=== PATIENT | female | born 1975 | race Caucasian/White ===

== ENCOUNTER 2016-12-17 12:22 | Emergency (ER) | payer OTHER ==
[~2016-12-17] VITALS: Ht 157.5 cm; Wt 57.7 kg
[~2016-12-17 12:22] MED LIST: ONDA4TAB7 SL
[2016-12-17 12:25] VITALS: TEMP 36.7; Ht 157.5 cm; Wt 57.7 kg
[2016-12-17] MEDS ORDERED: SODIUM CHLORIDE 0.9% 1000ML 1,000 ML IV STA (13:18)
[2016-12-17] MEDS ORDERED: SODIUM CHLORIDE 0.9% 500ML 500 ML IV STA (13:18)
--- NOTE | 2016-12-17 13:32 | EMERGENCY ROOM VISIT NOTE ---
History Report prepared by Ida: Rebecca Fuentes Under the Supervision of: Dr. Sara Farrell M.D. First contact with patient: 13:08 Chief Complaint: ABDOMINAL PAIN Stated Complaint: ABDOMINAL PAIN Nursing Triage Summary: pt reports mid abd pain happened on wednesday and after lying down for 30 minutes got better. started again at 1130 today feels nauseated. no vomiting , diarrhea or constipation. History of Present Illness The patient is a 41 year old female who presents to the Emergency Room with complaints of intermittent right sided abdominal pain starting 4 days ago. The first episode was 4 days ago. It passed after 30 minutes. She had eaten normally that day. She had another episode today. The pain was on the right side and wraps around to the back. When she has the pain she is unable to take deep breaths. She denies any vaginal discharge or bleeding, fever or vomiting. Her bowel movements have been normal. Her stool was slightly looser, but not concerning. She denies any bloody stools. She still has her appendix and gallbladder. She denies any chance of as she has had a tubal ligation. She denies any history of blood clots or hormone use. She has a family history of gallbladder problems. Source of History: patient Onset: 4 days ago Position: abdomen (right sided) Quality: other (pain) Timing: intermittent Modifying Factors (Worsening): breathing (deep) Associated Symptoms: No fevers, No vomiting Note: Pt denies vaginal discharge or bleeding. Pt denies bloody stools. Review of Systems See HPI for pertinent positives & negatives. A total of 10 systems reviewed and were otherwise negative. Past Medical & Surgical Medical Problems: (1) Bronchitis (2) Diabetes (3) Intrauterine Surgical Problems: (1) Previous section Family History Diabetes mellitus Gallbladder disease Hypertension Kidney disease Kidney stones Social History Smoking Status: Never Smoker Alcohol Use: occasionally Marital Status: Housing Status: lives with family Occupation Status: employed Current/Historical Medications Scheduled Omeprazole (Prilosec), 20 MG PO BID Allergies Coded Allergies: No Known Allergies (Unverified , 12/17/16) NKFA-NO LATEX ALLERGIES Physical Exam Vital Signs Date Time Temp Pulse Resp B/P Pulse Ox O2 Delivery O2 Flow Rate FiO2 12/17/16 17:06 59 14 126/62 98 12/17/16 16:00 55 12 108/62 99 Room Air 12/17/16 14:17 53 14 108/57 98 Room Air 12/17/16 13:42 54 12/17/16 12:25 36.7 56 18 147/81 99 Room Air Physical Exam Vital signs reviewed. General: Well-appearing, in no significant distress. HEENT: No scleral icterus, PERRLA, neck supple. Atraumatic. Cardiovascular: Regular rate and rhythm, no extra sounds. Pulmonary: Clear to auscultation bilaterally, normal work of breathing. Abdomen: Soft, mild tenderness to palpation of LUQ and RUQ, nondistended, positive bowel sounds. Pain with deep breathing to the right abdomen, Musculoskeletal: Atraumatic, no peripheral edema. Neurologic: Patient awake alert and oriented x 3, full strength in all 4 extremities. Cranial nerves 2 through 12 grossly intact. Skin: Warm, dry, no rash Medical Decision & Procedures ER Provider Diagnostic Interpretation: Radiology results as stated below per my review and radiologist interpretation: ABDOMINAL ULTRASOUND, RIGHT UPPER QUADRANT HISTORY: Right upper quadrant pain. COMPARISON: None. FINDINGS: Liver morphology is normal. There is a 3.4 cm right hepatic lobe cyst. No additional hepatic lesions are identified. There is no biliary ductal dilatation. There are no gallstones. The gallbladder is normal. The pancreas is within normal limits by sonography although the tail is partially obscured. There is no right hydronephrosis. IMPRESSION: 1. No gallstones or biliary ductal dilatation. 2. 3.4 cm right hepatic lobe cyst. Electronically signed by: Zeyad Foote M.D. 12/17/2016 2:48 PM Dictated Date/Time: 12/17/2016 2:47 PM Laboratory Results 12/17/16 13:15 Red Blood Count 4.02, Mean Corpuscular Volume 94.5, Mean Corpuscular Hemoglobin 32.3, Mean Corpuscular Hemoglobin Concent 34.2, Mean Platelet Volume 9.8, Neutrophils (%) (Auto) 64.6, Lymphocytes (%) (Auto) 28.6, Monocytes (%) (Auto) 5.9, Eosinophils (%) (Auto) 0.2, Basophils (%) (Auto) 0.5, Neutrophils # (Auto) 5.28, Lymphocytes # (Auto) 2.34, Monocytes # (Auto) 0.48, Eosinophils # (Auto) 0.02, Basophils # (Auto) 0.04 12/17/16 13:15 Test 12/17/16 13:15 White Blood Count 8.18 K/uL (4.8-10.8) Red Blood Count 4.02 M/uL (4.2-5.4) Hemoglobin 13.0 g/dL (12.0-16.0) Hematocrit 38.0 % (37-47) Mean Corpuscular Volume 94.5 fL (80-100) Mean Corpuscular Hemoglobin 32.3 pg (25-34) Mean Corpuscular Hemoglobin Concent 34.2 g/dl (32-36) Platelet Count 316 K/uL (130-400) Mean Platelet Volume 9.8 fL (7.4-10.4) Neutrophils (%) (Auto) 64.6 % Lymphocytes (%) (Auto) 28.6 % Monocytes (%) (Auto) 5.9 % Eosinophils (%) (Auto) 0.2 % Basophils (%) (Auto) 0.5 % Neutrophils # (Auto) 5.28 K/uL (1.4-6.5) Lymphocytes # (Auto) 2.34 K/uL (1.2-3.4) Monocytes # (Auto) 0.48 K/uL (0.11-0.59) Eosinophils # (Auto) 0.02 K/uL (0-0.5) Basophils # (Auto) 0.04 K/uL (0-0.2) RDW Standard Deviation 42.1 fL (36.4-46.3) RDW Coefficient of Variation 12.3 % (11.5-14.5) Immature Granulocyte % (Auto) 0.2 % Immature Granulocyte # (Auto) 0.02 K/uL (0.00-0.02) D-Dimer 760 ug/L FEU (0-500) Urine Color YELLOW Urine Appearance CLEAR (CLEAR) Urine pH 5.5 (4.5-7.5) Urine Specific [place] 1.011 (1.000-1.030) Urine Protein NEG (NEG) Urine Glucose (UA) NEG (NEG) Urine Ketones NEG (NEG) Urine Occult Blood NEG (NEG) Urine Nitrite NEG (NEG) Urine Bilirubin NEG (NEG) Urine Urobilinogen NEG (NEG) Urine Leukocyte Esterase NEG (NEG) Anion Gap 7.0 mmol/L (3-11) Est Creatinine Clear Calc Drug Dose 60.4 ml/min Estimated GFR () 85.0 Estimated GFR (Non- 73.4 BUN/Creatinine Ratio 15.9 (10-20) Calcium Level 9.2 mg/dl (8.5-10.1) Magnesium Level 2.4 mg/dl (1.8-2.4) Total Bilirubin 0.5 mg/dl (0.2-1) Direct Bilirubin 0.1 mg/dl (0-0.2) Aspartate Amino Transf (AST/SGOT) 25 U/L (15-37) Alanine Aminotransferase (ALT/SGPT) 34 U/L (12-78) Alkaline Phosphatase 54 U/L (45-117) Total Protein 7.6 gm/dl (6.4-8.2) Albumin 4.2 gm/dl (3.4-5.0) Lipase 171 U/L (73-393) Human Chorionic Gonadotropin, Qual NEG (NEG) Laboratory results per my review. Medications Administered Medications (Trade) Dose Ordered Sig/Jose M Route Start Time Stop Time Status Last Admin Dose Admin Sodium Chloride 500 ml @ 999 mls/hr Q31M STAT IV 12/17/16 13:18 12/17/16 13:48 DC 12/17/16 13:36 999 MLS/HR Sodium Chloride (Nss 1000ml) 1,000 ml @ 125 mls/hr Q8H STAT IV 12/17/16 13:18 12/17/16 17:28 DC 12/17/16 14:19 125 MLS/HR Pantoprazole Sodium (Protonix Tab) 40 mg NOW STAT PO 12/17/16 15:20 12/17/16 15:22 DC 12/17/16 15:31 40 MG ED Course 1316: Past medical records reviewed. The patient was evaluated in room B9. A complete history and physical examination was performed. 1318: NSS 1000 ml @ 125 mls/hr IV, NSS 500 ml @ 999 mls/hr IV. 1520: Protonix Tab 40 mg PO. 1523: I reevaluated the patient. She is resting comfortably. I updated her on the results. She will be going for a CT scan of her chest. Medical Decision Differential diagnosis: Etiologies such as appendicitis, diverticulitis, PUD, biliary pathology, UTI, pancreatitis, obstruction, mesenteric ischemia, aortic pathology, infections, inflammatory bowel disease, renal colic, as well as others were entertained. This patient was evaluated and appeared to be in no distress. IV access was obtained and laboratory work was drawn. The patient was hydrated with normal saline solution. Laboratory work is fairly unrevealing. Ultrasound right upper quadrant is negative. On reevaluation, the patient's pain had subsided. There is no significant tenderness to palpation. A CT scan of the abdomen and pelvis had been ordered but the patient stated she preferred to watch and wait. In the meantime the d-dimer resulted and is abnormal. A CT scan of the chest was performed and is negative for pulmonary embolus. The patient was informed of the findings and was advised to follow-up with her physician closely. She may warrant further testing. She will be placed on Prilosec 20 mg twice daily for 2 weeks, then once daily. She will return to the ER for worsening of symptoms or any medical concerns. Impression Primary Impression: Right upper quadrant abdominal pain Scribe Attestation The scribe's documentation has been prepared under my direction and personally reviewed by me in its entirety. I confirm that the note above accurately reflects all work, treatment, procedures, and medical decision making performed by me. Departure Information Prescriptions Omeprazole (PRILOSEC) 20 Mg Capcr 20 MG PO BID, #60 CAP Prov: Sara Farrell M.D. 12/17/16 Referrals No Doctor, Assigned (PCP) Patient Instructions My [facility]
[2016-12-17 13:39] LABS: BASO % 0.5 %; BASO ABS # 0.04 K/uL (0-0.2); COMPLETE YES; EOS % 0.2 %; IG% 0.2 %; LYMPH % 28.6 %; LYMPH ABS # 2.34 K/uL (1.2-3.4); MEAN CELL VOLUME 94.5 fL (80-100); MEAN CORPUSCULAR HEMOGLOBIN 32.3 pg (25-34); MEAN CORPUSCULAR HGB CONC 34.2 g/dl (32-36); MEAN PLATELET VOLUME 9.8 fL (7.4-10.4); MONO % 5.9 %; NEUT % 64.6 %; PLATELET COUNT 316 K/uL (130-400); RED BLOOD COUNT 4.02 M/uL (4.2-5.4); WHITE BLOOD COUNT 8.18 K/uL (4.8-10.8)
[2016-12-17 13:42] LABS: URINE APPEARANCE CLEAR (CLEAR); URINE BILIRUBIN NEG (NEG); URINE COLOR YELLOW; URINE NITRITE NEG (NEG); URINE PH 5.5 (4.5-7.5); URINE SPECIFIC GRAVITY 1.011 (1.000-1.030); UROBILINOGEN NEG (NEG); ZZUR CULT IF INDIC CLEAN CATCH NO
[2016-12-17 13:51] LABS: MANUAL MICROSCOPIC REQUIRED? NO; REVIEW REQ? NO
[2016-12-17 14:04] LABS: BUN/CREATININE RATIO 15.9 (10-20); CALCIUM 9.2 mg/dl (8.5-10.1); CREATININE 0.95 mg/dl (0.60-1.20); MAGNESIUM 2.4 mg/dl (1.8-2.4); POTASSIUM 3.5 mmol/L (3.5-5.1)
--- NOTE | 2016-12-17 14:50 | DIAGNOSTIC IMAGING REPORT ---
ABDOMINAL ULTRASOUND, RIGHT UPPER QUADRANT HISTORY: Right upper quadrant pain. COMPARISON: None. FINDINGS: Liver morphology is normal. There is a 3.4 cm right hepatic lobe cyst. No additional hepatic lesions are identified. There is no biliary ductal dilatation. There are no gallstones. The gallbladder is normal. The pancreas is within normal limits by sonography although the tail is partially obscured. There is no right hydronephrosis. IMPRESSION: 1. No gallstones or biliary ductal dilatation. 2. 3.4 cm right hepatic lobe cyst. Electronically signed by: Zeyad Foote M.D. 12/17/2016 2:48 PM Dictated Date/Time: 12/17/2016 2:47 PM
[2016-12-17 15:00] LABS: PREG INTERNAL NEGATIVE QC NEG CLEAR BACKGROUND; PREG INTERNAL POSITIVE QC POS CONTROL LINE
[2016-12-17] MEDS ORDERED: OPTIRAY 320 IV PRN (15:00)
[2016-12-17] MEDS ORDERED: PANTOprazole SOD 40 MG TAB PO STA (15:20)
--- NOTE | 2016-12-17 16:08 | DIAGNOSTIC IMAGING REPORT ---
CT ANGIOGRAM OF THE CHEST CLINICAL HISTORY: Chest pain and elevated d-dimer COMPARISON STUDY: No previous studies for comparison. TECHNIQUE: Following the IV administration of 94 mL of Optiray-320, CT angiogram of the thorax was performed from the thoracic inlet to the lung bases utilizing the pulmonary embolus protocol. Images are reviewed in the axial, sagittal, and coronal planes. IV contrast was administered without complication. MIP imaging was performed. CT DOSE: 172.62 mGy.cm FINDINGS: There is a partially visualized 28 mm hepatic cyst No pathologically enlarged axillary mediastinal or hilar lymph nodes were visualized. There are bilateral breast implants. There was no evidence of thoracic aortic dilatation. There were no pulmonary artery filling defects to indicate acute pulmonary embolism. No pleural effusions are visualized. There was no evidence of focal pulmonary consolidation. IMPRESSION: 1. No acute intrathoracic findings 2. No evidence of acute pulmonary embolism 3. No evidence of focal pulmonary consolidation Electronically signed by: Mitch Knight M.D. 12/17/2016 4:07 PM Dictated Date/Time: 12/17/2016 4:03 PM
[2016-12-17] MEDS ORDERED: PRLSR20 PO (16:40)
[2016-12-17 17:06] VITALS: BP 126/62; PULSE 59; O2SAT 98
== END 2016-12-17 17:00 | disposition home or self-care (01) ==
LOC: C.EDB 12:23
DX: R10.11 Right upper quadrant pain (principal); E11.9 Type 2 diabetes mellitus without complications; Z82.49 Family history of ischemic heart disease and other diseases of the circulatory system; Z83.3 Family history of diabetes mellitus; Z83.79 Family history of other diseases of the digestive system; Z84.1 Family history of disorders of kidney and ureter

== ENCOUNTER → 2017-06-30 | Outpatient (CLI) | payer OTHER | END | disposition home or self-care (01) | LOC: C.PAPS 11:44 | PROVIDERS: ATTEND Obstetrics & Gynecology | DX: Z12.4 Encounter for screening for malignant neoplasm of cervix (principal) ==

== ENCOUNTER → 2017-11-30 | Outpatient (CLI) | payer OTHER ==
--- NOTE | 2017-12-02 07:55 | MAMMOGRAPHY REPORT ---
BILATERAL DIGITAL SCREENING MAMMOGRAM TOMOSYNTHESIS WITH CAD: 11/30/2017 CLINICAL HISTORY: Routine screening. Patient has no complaints. TECHNIQUE: Breast tomosynthesis in addition to standard 2D mammography was performed. Current study was also evaluated with a Computer Aided Detection (CAD) system. COMPARISON: Prior mammograms dated 12/05/2014. BREAST COMPOSITION: The tissue of both breasts is heterogeneously dense, which may obscure small mas ses. FINDINGS: Bilateral subpectoral silicone implants are stable comparing to the prior mammograms. No s uspicious mass, architectural distortion or cluster of suspicious microcalcifications is seen. IMPRESSION: ACR BI-RADS CATEGORY 1: NEGATIVE There is no mammographic evidence of malignancy. A 1 year screening mammogram is recommended. The pa tient will receive written notification of the results. Approximately 10% of breast cancers are not detected with mammography. A negative mammographic report should not delay biopsy if a clinically suggestive mass is present. Adelaida Malloy M.D. ay/:11/30/2017 16:05:35 Private Security Guard: Sarah MUNOZ)(Vik), [facility] letter sent: Normal 1/2 BI-RADS Code: ACR BI-RADS Category 1: Negative
== END | disposition home or self-care (01) ==
LOC: C.MAMM 14:35
PROVIDERS: ATTEND Obstetrics & Gynecology
DX: Z12.31 Encounter for screening mammogram for malignant neoplasm of breast (principal); Z98.82 Breast implant status